=== PATIENT | male | born 1975 | race Caucasian/White ===

== ENCOUNTER → 2019-04-17 | Outpatient (CLI) | payer BC ==
--- NOTE | 2019-04-17 13:25 | KCIC ---
Chest radiograph 04/17/2019 12:00 AM INDICATION: Shortness of breath COMPARISON: None available TECHNIQUE: Frontal and lateral views of the chest are provided. FINDINGS: The cardiomediastinal silhouette is within normal limits. There are no pleural effusions. There is no pulmonary vascular congestion. There is no pneumothorax. The lungs are clear. No significant osseous abnormality is identified. IMPRESSION: No acute cardiopulmonary process. Electronically signed by: Bella Fountain MD (04/17/2019 1:22 PM) [id number]
== END | disposition home or self-care (01) ==
LOC: KCIC 12:21
PROVIDERS: ATTEND Family Medicine
DX: R06.02 Shortness of breath (principal)
CPT/HCPCS: 71046

== ENCOUNTER → 2019-07-06 | Outpatient (CLI) | payer BC ==
--- NOTE | 2019-07-06 14:39 | KCIC ---
CT scan of the chest without contrast 07/06/2019 CLINICAL HISTORY: COPD. Increasing shortness of breath for last 1.5 years. Cough. TECHNIQUE: Unenhanced, contiguous, 5 mm axial sections were obtained through the chest and upper abdomen. One or more of the following individualized dose reduction techniques were utilized for this study: 1. Automated exposure control. 2. Adjustment of the mA and/or kV according to patient size. 3. Use of iterative reconstruction technique. FINDINGS: Comparison is made to PA and lateral chest radiographs dated 04/17/2019. The heart is normal in size. The thoracic aorta tapers normally. Very small calcified right hilar and subcarinal lymph nodes are seen. Mild coronary artery calcification is seen involving the left anterior descending coronary artery. No hilar, mediastinal or axillary lymphadenopathy is seen. No pulmonary infiltrate, pulmonary mass, pulmonary nodule, pleural effusion or pneumothorax is seen. Images through the upper abdomen are within normal limits. Minimal S-shaped curvature of the thoracolumbar spine is seen. Degenerative changes are seen throughout the lumbar spine. IMPRESSION: No acute abnormality is seen. Electronically signed by: Toni Zhang MD (07/06/2019 2:36 PM) [id number]
== END | disposition home or self-care (01) ==
LOC: KCIC CT 09:41
PROVIDERS: ATTEND Internal Medicine Pulmonary Disease
DX: I25.10 Atherosclerotic heart disease of native coronary artery without angina pectoris (principal); J44.9 Chronic obstructive pulmonary disease, unspecified; M47.816 Spondylosis without myelopathy or radiculopathy, lumbar region; I10 Essential (primary) hypertension; F17.200 Nicotine dependence, unspecified, uncomplicated
CPT/HCPCS: 71250